=== PATIENT | female | born 1940 | race Caucasian/White ===

== ENCOUNTER 2024-06-20 13:53 | Emergency (ER) | payer SELFPAY ==
[2024-06-20 13:58] VITALS: BP 126/52
[2024-06-20 14:14] LABS: % Basophils 0.3 % (0-2); % Eosinophils 0.6 % (0-6); % Immature Granulocytes 0.3 % (0-0.5); % Lymphocytes 8.5 % (20.5-51.1); % Monocytes 8.2 % (1.7-9.3); % Neutrophils 82.1 % (42.2-75.2); Absolute Eosinophils 0.1 10^3/uL (0-0.7); Absolute Monocytes 0.9 10^3/uL (0.1-0.6); Absolute Neutrophils 9.4 10^3/uL (1.4-6.5); Hemoglobin 10.9 g/dL (12.0-16.0); Mean Corpuscular Hgb 26.7 pg (27.0-31.0); Mean Corpuscular Volume 80.9 fL (81.0-99.0); Nucleated Red Blood Cells % 0 %; Platelet Count 249 10^3/uL (130-400); Red Blood Cell Count 4.08 10^6/uL (4.20-5.40); Red Cell Dist. Width 14.6 % (11.5-14.5); White Blood Cell Count 11.4 10^3/uL (4.8-10.8)
[2024-06-20 15:06] LABS: ALT (SGPT) 15 U/L (0-35); AST (SGOT) 18 U/L (14-36); Albumin 3.8 g/dl (3.5-5.0); Alkaline Phosphatase 44 U/L (38-126); Blood Urea Nitrogen 15 mg/dl (7-17); Calcium 8.8 mg/dl (8.4-10.2); Carbon Dioxide 26 mmol/L (22-30); Chloride 101 mmol/L (98-107); Glucose 140 mg/dl (70-99); Potassium 3.7 mmol/L (3.5-5.1); Sodium 136 mmol/L (135-145); Total Bilirubin 0.9 mg/dl (0.2-1.3); Total Protein 6.4 g/dl (6.3-8.2); eGFR > 60.00
[2024-06-20 17:08] LABS: Lactic Acid 0.8 mmol/L (0.7-2.0)
[2024-06-20] MEDS: TORADOL 15 MG IV (17:12)
[2024-06-20 17:51] VITALS: BMI 29.9
[2024-06-20] MEDS: UNASYN IV (18:15)
--- NOTE | 2024-06-20 18:18 | ED.GENMED ---
History of Present Illness
General
Chief Complaint: Dental Problem
Source: patient and family
Exam Limitations: none
Time Seen by Provider: 06/20/24 15:00
Nursing documentation reviewed up to this point in time: agreed with
History of Present Illness
History of Present Illness:
pt is a 84 y/o F with h/o IDDM, HTN
the past 2 days with R dental pain and some swellin to mandible region
yesterday went to the dentist where they pulled the 1st molar and premolar on the R lower side
she has been taking tylenol and motrin for pain
no nkown fever
elder had wosrening swelling
is still able to open mouth
no trouble swallowing
hasn't really been eatingm much today
she has no headache, no drainage in her mouth or bleeding
she took 1 dose of azithromycin
Past History
Past History
ED Past Medical History: HTN and IDDM
Social History
Tobacco: Non-smoker
Alcohol: None
Review of Systems
Review of Systems
Allergies reviewed?: Yes
All Other Systems: Not applicable
Phy Exam
Physical Exam
Physical Exam:
GENERAL: Alert , in no apparent distress
EYE: pupils equal and reactive
NECK: Supple
ENT: o/p clr, mmm.
MODERATE RIGHT MANDIBULAR SWELLING WITH TENDERESS
periapically there is some swelli and purulecne'
the teeth are avulsed at the base
there is no trismus ; can open mouth 3 finger bredths
no sublingual or submental swelling or firmness
normal phonation
no drooling
tender R mandible
no skin chnages
CARDIAC: Regular rate and rhythm .
LUNGS: Clear breath sounds bilaterally, no acute respiratory distress, no wheezes/rales/rhonchi
ABDOMEN: Soft, without focal tenderness, no r/g, no cvat, normal bowel sounds
NEUROLOGICAL: Alert and oriented, no focal neuro deficits
SKIN: Warm and dry, skin intact.
PSYCH: Normal and appropriate interaction.
Course
Orders/Labs/Results
Orders:
Orders
06/20/24 14:07
Complete Blood Count/With Diff Urgent
Comprehensive Metabolic Panel Urgent
06/20/24 15:45
Ketorolac [Toradol] 15 mg IV NOW STA
06/20/24 15:58
CT Facial Bones W/wo Iv Contra Urgent
Comment:
Reason For Exam: R mandible swelling suspect abscess
06/20/24 16:29
Lactic Acid Urgent
06/20/24 17:53
Ampicillin/Sulbactam 3 G [Unasyn] 3 gm 0.9% Sodium Chloride 100 ml [Nss] 100 ml IV NOW
06/20/24 19:50
Acetaminophen [Tylenol] 1,000 mg PO NOW STA
Abnormal Lab Results
06/20/24
14:07
WBC 11.4 H 10^3/uL
(4.8-10.8)
RBC 4.08 L 10^6/uL
(4.20-5.40)
Hgb 10.9 L g/dL
(12.0-16.0)
Hct 33.0 L %
(37.0-47.0)
MCV 80.9 L fL
(81.0-99.0)
MCH 26.7 L pg
(27.0-31.0)
RDW 14.6 H %
(11.5-14.5)
Absolute Neuts (auto) 9.4 H 10^3/uL
(1.4-6.5)
Absolute Lymphs (auto) 1.0 L 10^3/uL
(1.2-3.4)
Absolute Monos (auto) 0.9 H 10^3/uL
(0.1-0.6)
Neutrophils % 82.1 H %
(42.2-75.2)
Lymphocytes % 8.5 L %
(20.5-51.1)
Glucose 140 H mg/dl
(70-99)
06/20/24 14:07
06/20/24 14:07
Vital Signs
Initial and Last Documented VS:
Initial Vital Signs
Temp Pulse Resp BP Pulse Ox
37.2 C 75 18 126/52 96
06/20/24 13:58 06/20/24 13:58 06/20/24 13:58 06/20/24 13:58 06/20/24 13:58
Last Documented Vital Signs
Temp Pulse Resp BP Pulse Ox
36.9 C 80 18 153/76 96
06/20/24 19:18 06/20/24 19:18 06/20/24 19:18 06/20/24 19:18 06/20/24 19:18
MDM/Problems Addressed
Differential Diagnosis Includes:
abscess, cellultiis
no signs ludwigs
MDM/Problems Addressed:
84 y/o F
IDDM
chronic problems with teeth #29, 30 decay
2 days ago woke up with R mandibular swelling
[place] dentist [place] the city and had extraction of these teeth
she woke up with mroe swelling tot he mandible today with low grade temp;
they had given her azithromycin, she took 1 dose so far, no allergies
on exam she has moderate R mandibular swelling, slight warmth and pink skin changes to the surface
periapical edema along the buccal surface of those teeth and waht looks like avulsions or maybe they filled it with putty
anyway, her temp was 99.8, wbc 11.[address] her face which doesn't show drainable collection, just STACI and reactive sts
she has no trismus or sublingual or submental swelling
i gave her unasyn and i'm thinkin about obs overnight for IV abx
i did numb her with lidocaine and used #11 blade but no pus came out
d/w oral surgeon dr. carranza who said we could either obs overnight for IV abx or switch her to the augmentin as cristal alherminio she could see her tomorrow at 10 am
pt wa offered this choice and opted to go home to son's house and he will take her to appt tomorrow
return precatuions give.n.
*Critical Care Note
Total Time (30-74mins, 75-104mins- exclusive of procedures): Not Applicable
ED Attending Note
-
Portions of this chart may have been created with voice recognition software.� Occasional wrong word or��sound alike� substitutions may have occurred due to the inherent limitations of voice recognition software.
Discharge Plan
Departure
Patient Disposition: Home (Routine Discharge)
Date of Disposition: 06/20/24
Time of Disposition: 19:36
Patient with high blood pressure during this ER visit?: Yes
Condition: Fair
Discharge Problem:
Dental infection, Mandibular swelling
Instructions: Dental Pain (DC)
Prescriptions:
New
amoxicillin-pot clavulanate 875-125 mg tablet
1 tab PO BID 10 Days Qty: 20 0RF
Referrals:
Cathie Landa DDS [Active] - Tomorrow
(AT 10 AM
[address]
[place] [id number]
[phone])
Heidi Mederos MD [Family Provider] -
Activity Restrictions/Additional Instructions:
THE CAT SCAN DID NOT SHOW ANY OBVIOUS ABSCESS
THE SWELLING IS LIKELY REACTIVE
GIVE THE TYLENOL AND MOTRIN FOR PAIN NEEDED
ICE OFF AND ON
SWITCH THE ANTIBIOTIC TO AUGMENTIN TWICE A DAY STARTING TOMORROW
CALL THE DENTIST FOR FOLLOW UP
RETURN FOR ;SEVERE PAIN, SEVERE SWELLING, INABILITY TO OPEN JAW, HIGH FEVER, SWELLING UNDER THE NECK OR ANY CONCERNS.
Interventions
Interventions:
*Risk Screen - Suicide Last Done: 06/20/24 13:58
*General Assessment Last Done: 06/20/24 13:58
*Neglect/Abuse Screening Last Done: 06/20/24 13:58
*ED COVID-19 Vaccine History Last Done: 06/20/24 14:41
*Nursing Disposition Last Done: 06/20/24 19:59
Discharge Date and Time
Discharge Date/Time: 06/20/24 19:59
Print Language: MACANESE
[2024-06-20 19:18] VITALS: BP 153/76
[2024-06-20] MEDS: TYLENOL 1000 MG PO (19:53)
== END 2024-06-20 19:59 | disposition home or self-care (01) ==
LOC: EMR 13:53
PROVIDERS: Physician Assistant; EMERGENCY PHYSICIAN Emergency Medicine; FAMILY PHYSICIAN Internal Medicine Geriatric Medicine
DX: K04.7 Periapical abscess without sinus (principal); K08.89 Other specified disorders of teeth and supporting structures; R22.0 Localized swelling, mass and lump, head; K02.9 Dental caries, unspecified; E11.9 Type 2 diabetes mellitus without complications; I10 Essential (primary) hypertension; Z98.890 Other specified postprocedural states; Z79.4 Long term (current) use of insulin
CPT/HCPCS: 99284; 41800; 96365; 70488; 80053; 83605; 85025; Q9967